=== PATIENT | male | born 1930 | race Caucasian/White ===

== ENCOUNTER → 2017-05-16 | Outpatient (CLI) | payer MEDICARE, BC ==
--- NOTE | 2017-05-16 14:28 | RADIOLOGY REPORT (SQ) ---
EXAM DESCRIPTION: U/S ABDOMEN COMPLETE W/DOPPLER COMPLETED DATE/TIME: 05/16/2017 9:57 am REASON FOR STUDY: SPLENOMEGALY R16.1 SPLENOMEGALY, NOT ELSEWHERE CLASSIFIED COMPARISON: CT abdomen and pelvis [facility] 08/11/2015 CT chest [facility] 08/11/2016 TECHNIQUE: Dynamic and static grayscale images acquired of the abdomen and recorded on PACS. Additio nal selected color Doppler and spectral images recorded. LIMITATIONS: midline bowel gas FINDINGS: PANCREAS: Midline pancreas unremarkable Set LIVER: No masses. Echotexture normal. LIVER VASCULATURE: Normal directional flow of the main portal vein and hepatic veins. GALLBLADDER: Single shadowing stone in the gallbladder without gallbladder wall thickening or pericho lecystic fluid. ULTRASOUND-DETECTED BROWER'S SIGN: Negative. INTRAHEPATIC DUCTS AND COMMON DUCT: CBD and intrahepatic ducts normal caliber. No filling defects. INFERIOR VENA CAVA: Normal flow. AORTA: The abdominal aorta is ectatic, infrarenal abdominal aorta 3.9 x 3.8 cm similar compared to CT abdomen pelvis 08/11/2016. RIGHT KIDNEY: Normal size. Diffuse cortical thinning with 1.5 cm upper pole cyst. No solid or peralta spicious masses. No hydronephrosis. No calcifications. LEFT KIDNEY: Normal size. Diffuse cortical thinning with 2 cm upper pole and 3 cm lower pole corti raman cysts. No solid or suspicious masses. No hydronephrosis. No calcifications. SPLEEN: Normal size. No solid masses. Spleen is 9 cm in greatest length PERITONEAL AND PLEURAL SPACES: No ascites or effusions. OTHER: No other significant finding. IMPRESSION: No splenomegaly Single gallstone without gallbladder wall thickening pericholecystic fluid. Bilateral renal cortical cysts. Stable 3.9 x 3.8 cm infrarenal abdominal aortic aneurysm TECHNICAL DOCUMENTATION: JOB ID: [id number]- All Rights Reserved
== END ==
LOC: RAD 08:59
PROVIDERS: ATTEND Internal Medicine
DX: R16.1 Splenomegaly, not elsewhere classified (principal); I71.4 Abdominal aortic aneurysm, without rupture; K80.80 Other cholelithiasis without obstruction; N28.1 Cyst of kidney, acquired
CPT/HCPCS: 76700; 93976